=== PATIENT | female | born 1955 | race Caucasian/White ===

== ENCOUNTER → 2016-12-19 | Outpatient (CLI) | payer OTHER ==
[~2016-12-19] MED LIST: FEOSOL BIFERA 228 MG PO; GLUCOSAMINE-CH1 EAC3 PO; HYDROCODON-ACE1 EAC7 PO; HYDROXYZINE HCL50 MG PO; KLONOPIN0.5 M3 PO; LEVOTHYROXINE100 MC1 PO; NABUMETONE500 MG PO; VITAMIN B-121000 MCG PO; VITAMIN D31000 UNIT PO; VYTORIN 10-401 EACH PO
--- NOTE | ~2016-12-19 | US37 ---
[facility] A Service of [facility] & [facility] RADIOLOGY TEXT RESULTS PATIENT: CRAIG RODRÍGUEZ LOCATION: [facility] : 55 UNIT #: [id number] AGE: [address]: CHIRAG MCKEON MD (INT MED) SEX: F ORDER DR: [id number] [facility] [address] [place], [place] [address] [id number] O MR#: [id number] Acc #: [id number] NAME: CRAIG RODRÍGUEZ : 1955 SEX: F STUDY DATE/TIME: 12/19/2016 14:07 UNIT: [facility] ROOM: STUDY DESCRIPTION: US Carotid W/Doppler Bilateral Attending Physician: Chirag Mckeon M.D. Referring Physician: Chirag Mckeon M.D. Ordering Physician: Chirag Mckeon M.D. Primary Care Physician: Chirag Mckeon M.D. MEDICAL IMAGING REPORT This report is preliminary unless electronic signature is present EXAM Bilateral carotid duplex HISTORY Carotid bruit. FINDINGS Duplex imaging of the carotid arteries was performed. The right common carotid artery is patent. Plaque is seen at the right internal and external carotid artery origins. Velocity in the right common femoral is 77, internal is 73 proximally, 93 mid portion, and 145 distally. External is 145 cm/sec. Right ICA/CCA ratio is 1.89. On the left side, the common carotid artery is patent. Mild plaque is seen in the left internal carotid artery. Velocity in the left common carotid is 101, internal is 92, and external is 175 cm/sec. Left ICA/CCA ratio is 1.02. Antegrade flow is seen in the right vertebral artery and retrograde flow is seen in the left vertebral artery. IMPRESSION 1. Plaque with less than 50% stenosis is seen in the internal carotid arteries bilaterally. 2. Antegrade flow is seen in the right vertebral artery. 3. Retrograde flow is seen in the left vertebral artery. Clinical correlation is recommended for subclavian steal syndrome. Dictated by... Arley Salvador M.D. [facility] A Service of [facility] & [facility] RADIOLOGY TEXT RESULTS PATIENT: CRAIG RODRÍGUEZ LOCATION: [facility] : 55 UNIT #: [id number] AGE: [address]: CHIRAG MCKEON MD (INT MED) SEX: F ORDER DR: THIS IS AN ELECTRONICALLY VERIFIED REPORT Arley Salvador M.D. at 12/20/2016 9:09 AM Ramirez TD: 12/20/2016 06:40 JOB #: [id number] MEDICAL IMAGING REPORT COPY
--- NOTE | ~2016-12-19 | MY11 ---
[facility] A Service of [facility] & [facility] RADIOLOGY TEXT RESULTS PATIENT: CRAIG RODRÍGUEZ LOCATION: [facility] : 55 UNIT #: [id number] AGE: [address]: CHIRAG MCKEON MD (INT MED) SEX: F ORDER DR: [id number] [facility] [address] [place], [place] [address] [id number] O MR#: [id number] Acc #: [id number] NAME: CRAIG RODRÍGUEZ : 1955 SEX: F STUDY DATE/TIME: 12/19/2016 13:00 UNIT: [facility] ROOM: STUDY DESCRIPTION: MY Mammogram Screening Dig Miguel Attending Physician: Chirag Mckeon M.D. Referring Physician: Chirag Mckeon M.D. Ordering Physician: Chirag Mckeon M.D. Primary Care Physician: Chirag Mckeon M.D. MEDICAL IMAGING REPORT This report is preliminary unless electronic signature is present EXAM Bilateral digital screening mammogram with CAD, 12/19/2016 INDICATION Routine screening. No current complaints. No history of breast cancer. No old studies. FINDINGS MLO and CC views of each breast were obtained. The exam was reviewed with an FDA-approved CAD device. There is a grouping of calcifications associated with soft tissue in the posterior lateral left breast. The area is about a centimeter maximal dimension. The right breast has a small nodule measuring 9 mm in diameter in the lateral breast. It was only seen on the CC view but is probably in the upper half of the breast on the MLO view. IMPRESSION There are no old studies available. There is a grouping of indeterminate calcifications in the upper outer breast posteriorly that need additional evaluation with magnification views and there is a small 9 mm nodule in the right breast upper outer quadrant posterior third that should be evaluated with spot compression imaging and ultrasound. The left breast lesion should also be evaluated with ultrasound. Patients over the age of 40 are entered into a reminder system with target due date for the next mammogram. A result letter will also be sent to the patient. BIRADS: 0 Incomplete; need additional imaging evaluation and/or prior mammograms for comparison. [facility] A Service of [facility] & [facility] RADIOLOGY TEXT RESULTS PATIENT: CRAIG RODRÍGUEZ LOCATION: [facility] : 55 UNIT #: [id number] AGE: [address]: CHIRAG MCKEON MD (INT MED) SEX: F ORDER DR: Dictated by... Heriberto Rousseau M.D. THIS IS AN ELECTRONICALLY VERIFIED REPORT Heriberto Rousseau M.D. at 12/20/2016 7:13 AM BROOKE/peter TD: 12/20/2016 04:25 JOB #: [id number] MEDICAL IMAGING REPORT COPY
== END | disposition home or self-care (01) ==
LOC: CWCC 12:23
DX: Z12.31 Encounter for screening mammogram for malignant neoplasm of breast (principal); N63 Unspecified lump in breast; I08.1 Rheumatic disorders of both mitral and tricuspid valves; I65.23 Occlusion and stenosis of bilateral carotid arteries
CPT/HCPCS: 93306; 93880; G0202

== ENCOUNTER → 2016-12-30 | Outpatient (CLI) | payer OTHER ==
--- NOTE | ~2016-12-30 | MY6 ---
[facility] A Service of [facility] & [facility] RADIOLOGY TEXT RESULTS PATIENT: CRAIG RODRÍGUEZ LOCATION: [facility] : 55 UNIT #: [id number] AGE: [address]: CHIRAG MCKEON MD (INT MED) SEX: F ORDER DR: [id number] [facility] [address] [place], [place] [address] [id number] O MR#: [id number] Acc #: [id number] NAME: CRAIG RODRÍGUEZ : 1955 SEX: F STUDY DATE/TIME: 12/30/2016 14:48 UNIT: [facility] ROOM: STUDY DESCRIPTION: MY Mammogram Dx Dig Miguel Attending Physician: Chirag Mckeon M.D. Referring Physician: Chirag Mckeon M.D. Ordering Physician: Chirag Mckeon M.D. Primary Care Physician: Chirag Mckeon M.D. MEDICAL IMAGING REPORT This report is preliminary unless electronic signature is present EXAM 1. Bilateral digital diagnostic mammogram with CAD. 2. Targeted bilateral breast ultrasound. DATE 12/30/2016. HISTORY 61-year-old female recalled for a nodule in the right breast and microcalcifications in the left breast on recent screening baseline mammogram. No current problems. TECHNIQUE Compression CC and compression MLO views of the right breast were performed. Compression magnification CC, compression magnification MLO views of the left breast were performed. Standard true lateral views of both breasts were also performed. COMPARISON STUDIES 12/19/2016 FINDINGS MAMMOGRAPHIC FINDINGS: Right breast - The small nodule in the lateral hemisphere, right breast, posteriorly, measuring 9 mm, persists on spot CC view. It localizes superiorly on the MLO image and true lateral view, but is obscured from complete visualization by overlapping dense breast tissue. Based on the mammogram, it could represent a tiny intramammary node or cyst. Ultrasound was, thereafter, performed. Left breast - The microcalcifications in the posterior upper outer quadrant, left breast, are indeterminate on the additional spot magnification views. They are associated with a nodular soft tissue STS. [facility] A Service of [facility] & [facility] RADIOLOGY TEXT RESULTS PATIENT: CRAIG RODRÍGUEZ LOCATION: [facility] #: [id number] : 55 UNIT #: [id number] AGE: [address]: CHIRAG MCKEON MD (INT MED) SEX: F ORDER DR: density measuring up to about 10 mm. They are associated with the posterior margin of a scar marker in the upper outer quadrant, left breast, from prior surgery. Ultrasound of this area was thereafter performed, as well. ULTRASOUND FINDINGS: The patient was initially scanned independently by the technologist and then rescanned in my presence. Right breast - Imaging of the upper outer quadrant, right breast, was performed. Imaging was performed from the 9 o'clock through the 11 o'clock positions. Ultrasound is negative, demonstrating no cystic or solid nodule or persistent shadowing abnormality. There is no correlate for the mammographic finding. Given imaging features mammographically, it will require a follow-up diagnostic mammogram in 6 months to reassess stability. Lack of a sonographic finding is suggestive of a probably benign etiology. Left breast - Imaging of the upper outer quadrant, left breast, was performed with attention to the 2 and 3 o'clock positions. Ultrasound demonstrates a subtle iso- to slightly hypoechoic solid nodule measuring approximately 8 x 10 x 5 mm. Centrally, within the nodule, there are small flecks of calcium most characteristic of microcalcifications. Imaging features are felt to correspond to the mammographic abnormality. There is no internal color flow or significant posterior acoustical shadowing. The margins are somewhat irregular and microlobulated, however, and imaging findings are concordant with mammography and indeterminate. This could potentially represent an area of fat necrosis from prior surgery. Malignancy, however, could present similarly, and ultrasound-guided core biopsy is recommended for further assessment. At the time of core biopsy, a clip should be placed and the clip placement should be correlated with a clip placement mammogram to ensure that the abnormality identified on ultrasound corresponds to the mammographic finding. Findings regarding the need for 6-month follow-up imaging of the right breast to document stability of the probably benign 9-mm nodule were discussed with the patient. Findings regarding the recommendation for ultrasound-guided core biopsy of the indeterminate nodule with microcalcifications in the upper outer left breast was also discussed with the patient. The patient has voiced understanding and agreement with both recommendations. She has requested that the biopsy on the left be scheduled in the afternoon, if possible, to accommodate her work schedule. I have also personally contacted the breast primary care sales representative for mammography regarding the recommendations for biopsy on the left, and they were in the process of notifying the ordering office of Dr. Chirag Mckeon of these recommendations. IMPRESSION 1. Indeterminate microcalcifications with an associated soft tissue nodule in the upper outer left breast. This may represent fat STS. [facility] A Service of [facility] RADIOLOGY TEXT RESULTS PATIENT: CRAIG RODRÍGUEZ LOCATION: [facility] : 55 UNIT #: [id number] AGE: [address]: CHIRAG MCKEON MD (INT MED) SEX: F ORDER DR: necrosis, but is indeterminate and malignancy could present similarly on imaging. Ultrasound-guided core biopsy recommended for further assessment, as described above. The patient and the breast primary care sales representative are both aware of the recommendation for biopsy. The patient has requested scheduling of the biopsy in the afternoon, if possible, to accommodate her work schedule. 2. There is a nodule in the upper outer right breast measuring 9 mm. It is not identified with ultrasound, and there are no suspicious findings on ultrasound in the same quadrant of the right breast. This represents a probably benign finding on mammography, perhaps an intramammary node. 6-month follow-up imaging with a repeat diagnostic mammogram on the right recommended to document stability. 3. All of these findings and recommendations have been discussed with the patient. She has voiced understanding and agreement. Patients over the age of 40 are entered into a reminder system with target due date for the next mammogram. A result letter will also be sent to the patient. BIRADS: 4 Suspicious abnormality; biopsy should be considered. Dictated by... Julian Miranda M.D. THIS IS AN ELECTRONICALLY VERIFIED REPORT Julian Miranda M.D. at 12/30/2016 5:25 PM Lenard TD: 12/30/2016 16:29 JOB #: [id number] MEDICAL IMAGING REPORT COPY
--- NOTE | ~2016-12-30 | US17 ---
[facility] A Service of [facility] & [facility] RADIOLOGY TEXT RESULTS PATIENT: CRAIG RODRÍGUEZ LOCATION: [facility] : 55 UNIT #: [id number] AGE: [address]: CHIRAG MCKEON MD (INT MED) SEX: F ORDER DR: [id number] [facility] [address] [place], [place] [address] [id number] O MR#: [id number] Acc #: [id number] NAME: CRAIG RODRÍGUEZ : 1955 SEX: F STUDY DATE/TIME: 12/30/2016 15:29 UNIT: [facility] ROOM: STUDY DESCRIPTION: US Breast Bilateral Attending Physician: Chirag Mckeon M.D. Referring Physician: Chirag Mckeon M.D. Ordering Physician: Chirag Mckeon M.D. Primary Care Physician: Chirag Mckeon M.D. MEDICAL IMAGING REPORT This report is preliminary unless electronic signature is present EXAM Targeted bilateral breast ultrasound, 12/30/2016. FINDINGS Please see the bilateral diagnostic mammogram same date. Patients over the age of 40 are entered into a reminder system with target due date for the next mammogram. A result letter will also be sent to the patient. BIRADS: 4 Suspicious abnormality; biopsy should be considered. STAT * RESULT Dictated by... Julian Miranda M.D. THIS IS AN ELECTRONICALLY VERIFIED REPORT Julian Miranda M.D. at 12/30/2016 5:20 PM OLIVA/nazanin TD: 12/30/2016 16:30 JOB #: [id number] MEDICAL IMAGING REPORT COPY
== END | disposition home or self-care (01) ==
LOC: CMAM 14:08
DX: N63 Unspecified lump in breast (principal); R92.1 Mammographic calcification found on diagnostic imaging of breast; R92.0 Mammographic microcalcification found on diagnostic imaging of breast
CPT/HCPCS: 76641; G0204

== ENCOUNTER → 2017-01-06 | Day surgery (SDC) | payer OTHER ==
--- NOTE | ~2017-01-06 | US200 ---
[facility] A Service of [facility] RADIOLOGY TEXT RESULTS PATIENT: CRAIG RODRÍGUEZ LOCATION: [facility] : 55 UNIT #: [id number] AGE: [address]: CHIRAG MCKEON MD (INT MED) SEX: F ORDER DR: [id number] [place] [address] [place], [place] [address] [id number] O MR#: [id number] Acc #: [id number] NAME: CRAIG RODRÍGUEZ : 1955 SEX: F STUDY DATE/TIME: 01/06/2017 13:48 UNIT: [facility] ROOM: STUDY DESCRIPTION: US Breast Guided Bx 1st Lesion Attending Physician: Chirag Mckeon M.D. Ordering Physician: Chirag Mckeon Primary Care Physician: Chirag Mckeon M.D. MEDICAL IMAGING REPORT This report is preliminary unless electronic signature is present REVISED REPORT SEE ADDENDUM EXAM Ultrasound-guided left breast core biopsy. HISTORY Left breast mass. TECHNIQUE Following discussion of the procedure, including potential risks and benefits, informed consent was obtained. The patient's questions were answered. The patient was brought to the ultrasound suite, and a ghad-vp-sjoct time-out was performed. The area of concern in the left breast, 2 o'clock position, was identified. Skin was prepped and draped using full sterile technique. The skin and overlying soft tissues were anesthetized with lidocaine. Then, under ultrasound guidance, 2 core samples were obtained, using an automated core biopsy device. Images were stored. Then, a marker clip was placed under ultrasound guidance, and the image was stored. No immediate complication. Post biopsy mammogram shows the clip in the region of the mammographic area of concern. IMPRESSION Left breast ultrasound-guided core biopsy. No immediate complications. Dictated by... Pardeep Conroy M.D. [facility] A Service of [facility] & [facility] RADIOLOGY TEXT RESULTS PATIENT: CRAIG RODRÍGUEZ LOCATION: [facility] : 55 UNIT #: [id number] AGE: [address]: CHIRAG MCKEON MD (INT MED) SEX: F ORDER DR: THIS IS AN ELECTRONICALLY VERIFIED REPORT Pardeep Conroy M.D. at 01/09/2017 7:40 AM Crissy TD: 01/06/2017 19:11 JOB #: [id number] ADDENDUM Ultrasound-guided breast biopsy DATE OF SERVICE 01/06/2017 Pathology is made available and is significant for focal ductal carcinoma in situ. Findings are concordant with the sonographic features. Dictated by... Pardeep Conroy M.D. THIS IS AN ELECTRONICALLY VERIFIED REPORT Pardeep Conroy M.D. at 01/26/2017 6:51 AM Deb TD: 01/25/2017 14:24 JOB #: [id number] MEDICAL IMAGING REPORT Page 1 of 1 COPY
--- NOTE | ~2017-01-06 | MY14 ---
[facility] A Service of [facility] & [facility] RADIOLOGY TEXT RESULTS PATIENT: CRAIG RODRÍGUEZ LOCATION: [facility] : 55 UNIT #: [id number] AGE: [address]: CHIRAG MCKEON MD (INT MED) SEX: F ORDER DR: [id number] [facility] [address] [place], [place] [address] [id number] O MR#: [id number] Acc #: [id number] NAME: CRAIG RODRÍGUEZ : 1955 SEX: F STUDY DATE/TIME: 01/06/2017 13:54 UNIT: [facility] ROOM: STUDY DESCRIPTION: MY Post Bx Film Attending Physician: Chirag Mckeon M.D. Ordering Physician: Chirag Mckeon M.D. Primary Care Physician: Chirag Mckeon M.D. MEDICAL IMAGING REPORT This report is preliminary unless electronic signature is present EXAM Post biopsy mammogram. FINDINGS Refer to the separately dictated ultrasound-guided biopsy for procedural details. Dictated by... Pardeep Conroy M.D. THIS IS AN ELECTRONICALLY VERIFIED REPORT Pardeep Conroy M.D. at 01/09/2017 7:40 AM Crissy TD: 01/06/2017 19:15 JOB #: [id number] MEDICAL IMAGING REPORT Page 1 of 1 COPY
== END | disposition home or self-care (01) ==
LOC: CWCC 13:31
DX: D05.12 Intraductal carcinoma in situ of left breast (principal); Z17.0 Estrogen receptor positive status [ER+]
CPT/HCPCS: 88305; G0204

== ENCOUNTER → 2017-03-09 | Outpatient (CLI) | payer OTHER ==
--- NOTE | ~2017-03-09 | EKG ---
PATIENT: CRAIG RODRÍGUEZ UNIT #: [id number] Ventricular Rate: 79 BPM Atrial Rate: 79 BPM P-R Interval: 182 ms QRS Duration: 78 ms Q-T Interval: 400 ms QTC Calculation(Bezet): 458 ms P Bethesda: 49 degrees Calculated R Bet[place]da: 7 degrees Calculated T Bet[place]da: 43 degrees Diagnosis Line: Normal sinus rhythm Diagnosis Line: Normal ECG Diagnosis Line: No previous ECGs available Diagnosis Line: Confirmed by NOAM GAFFNEY MD ([id number]) on 03/09/2017 Diagnosis Line: 6:10:41 PM INTERPRETING MD: GULSHAN GARRISON
[2017-03-09 15:24] LABS: HEMATOCRIT 41.5 % (35.0-45.0); HEMOGLOBIN 13.6 gm/dL (12.0-16.0); MEAN CELL VOLUME 85.3 FL (83-96); MEAN CORPUSCULAR HGB CONC 32.9 g/dL (30-36); RED BLOOD COUNT 4.87 X10e (3.90-5.30); RED CELL DISTRIBUTION WIDTH 14.3 % (11.0-15.5); WHITE BLOOD COUNT 9.7 X10e3 (4.0-10.5)
[2017-03-09 15:45] LABS: BUN/CREATININE RATIO 13.75; CALCIUM SERUM 8.7 mg/dL (8.4-10.2); CREATININE SERUM 0.8 mg/dL (0.6-1.4); GLOM FILT RATE Estimated 79.6 mL/min (>60); POTASSIUM 4.3 mmol/L (3.5-5.1)
== END | disposition home or self-care (01) ==
LOC: CAMB 13:57
PROVIDERS: Surgery
DX: Z01.818 Encounter for other preprocedural examination (principal); D05.12 Intraductal carcinoma in situ of left breast; R92.0 Mammographic microcalcification found on diagnostic imaging of breast; R92.8 Other abnormal and inconclusive findings on diagnostic imaging of breast; J01.90 Acute sinusitis, unspecified; J30.9 Allergic rhinitis, unspecified; D64.9 Anemia, unspecified; M19.90 Unspecified osteoarthritis, unspecified site; D22.9 Melanocytic nevi, unspecified; R09.89 Other specified symptoms and signs involving the circulatory and respiratory systems; F32.9 Major depressive disorder, single episode, unspecified
CPT/HCPCS: 36415; 80048; 85027; 93005

== ENCOUNTER → 2017-03-16 | Outpatient (CLI) | payer OTHER ==
--- NOTE | ~2017-03-16 | OR ---
Unit #: [id number] #: [id number] Patient: CRAIG RODRÍGUEZ 347[address] [address] [id number] O MR#: [id number] NAME: CRAIG RODRÍGUEZ ROOM: Date of Procedure: 03/16/2017 Admission Date: 03/16/2017 Surgeon: Doyle Ureña M.D. : 1955 Attending Physician: Doyle Ureña M.D. Referring Physician: Doyle Ureña M.D. Primary Care Physician: Doyle Ureña M.D. OPERATIVE REPORT PREOPERATIVE DIAGNOSIS Ductal carcinoma in situ, left breast, upper central aspect. POSTOPERATIVE DIAGNOSIS Ductal carcinoma in situ, left breast, upper central aspect. PROCEDURE PERFORMED Needle localization lumpectomy, left breast upper central aspect. ANESTHESIA General LMA anesthesia with 0.5% Marcaine plain local anesthesia. FINDINGS The lesion, clip and wire were all found within the specimen on specimen radiograph. SPECIMENS Sent to pathology. COMPLICATIONS None apparent. CONDITION The patient tolerated the procedure well. INDICATIONS FOR PROCEDURE The patient is a 61-year-old female, who was found on recent mammography to have calcifications in the upper portion of her left breast in the central aspect. She was also found to have a small solid lesion in the right breast, which on biopsy returned as a fibroadenoma. Two other areas were found on breast MRI had MRI-guided biopsy performed in the medial aspect of the left breast and both returned as benign parenchyma. The patient presented at this time for needle localization lumpectomy for the area of DCIS. DESCRIPTION OF PROCEDURE After obtaining informed consent as well as receiving preoperative antibiotics, the patient was brought to the operating room. Earlier in the day, she had undergone image guided needle localization. After adequate general LMA anesthesia was obtained and after receiving antibiotics and knee-high SCDs, the patient's left breast was prepped and draped in a sterile fashion. A curvilinear incision was made in the upper Unit #: [id number] #: [id number] Patient: CRAIG RODRÍGUEZ outer portion of the left breast. It was taken down through the skin with a knife through the subcutaneous tissues to the level of the wire without difficulty with electrocautery. The area around the hook of the wire was grasped with an Allis clamp and it was circumferentially excised. There was good hemostasis. The specimen was sent for specimen radiograph and the lesion, clip, and wire were all found within the specimen on x-ray. The wound was irrigated. Hemostasis was obtained with the Bovie, infiltrated with 0.5% Marcaine plain local anesthesia. The subcutaneous tissues were reapproximated with interrupted 3-0 Vicryl suture. The skin was closed with 4-0 Vicryl subcuticular stitch. Benzoin and Steri-Strips were applied over the wound in an occlusive manner followed by dry dressing and a Tegaderm dressing. Needle counts, sponge counts, and instrument counts were all correct as reported by the scrub nurse x2. The patient went from the operating room to the recovery room in stable condition. Dictated by... Marsha Griffin/dora TD: 03/17/2017 00:52 JOB #: [id number] CC: Marsha Ayoub M.D. [facility] OPERATIVE REPORT Page 1 of 1 X Doyle Ureña MD X PROCEDURE OPERATIVE NOTE
--- NOTE | ~2017-03-16 | MY20 ---
[facility] A Service of [facility] & [facility] RADIOLOGY TEXT RESULTS PATIENT: CRAIG RODRÍGUEZ LOCATION: [facility] : 55 UNIT #: [id number] AGE: [address]: Doyle Ureña MD SEX: F ORDER DR: [id number] [facility] [address] [place], [place] [address] [id number] O MR#: [id number] Acc #: [id number] NAME: CRAIG RODRÍGUEZ : 1955 SEX: F STUDY DATE/TIME: 03/16/2017 9:16 UNIT: [facility] ROOM: STUDY DESCRIPTION: MY Breast Ndl Loc 1st Attending Physician: Doyle Ureña M.D. Referring Physician: Doyle Ureña M.D. Ordering Physician: Doyle Ureña M.D. Primary Care Physician: Doyle Ureña M.D. MEDICAL IMAGING REPORT This report is preliminary unless electronic signature is present EXAM Mammographic needle localization left breast 03/16/2017 INDICATION Patient presents for needle localization and surgical excision of biopsy proven DCIS in the upper outer left breast. PROCEDURE Informed consent was obtained and time-out was performed. Patient's prior imaging was reviewed. Initial attempts at localizing the lesion at the upper outer left breast with ultrasound were not definitive. Therefore, the patient was moved to the mammography suite. She was subsequently placed in lateral to medial compression. The skin was cleansed with a ChloraPrep. 1% Lidocaine without epinephrine used for local anesthesia. A [place] wire and needle were used to localize the mass from a lateral approach. Needle and wire placement are confirmed with orthogonal mammographic views. The tip of the [place] needle is immediately adjacent to the mass and marking clip. The hook of the wire extends slightly posterior and superior to the lesion. These findings have been communicated to Dr. Ureña. No immediate complications. IMPRESSION Successful mammographic needle localization of biopsy proven DCIS in the left upper outer breast. The tip of a [place] needle is immediately adjacent to the mass and marking clip and the hook of the wire extends slightly posterior and superior to the lesion. Dictated by... Jose Saini Jr., M.D. [facility]. [facility] A Service of [facility] & [facility] RADIOLOGY TEXT RESULTS PATIENT: CRAIG RODRÍGUEZ LOCATION: [facility] #: [id number] : 55 UNIT #: [id number] AGE: [address]: Doyle Ureña MD SEX: F ORDER DR: THIS IS AN ELECTRONICALLY VERIFIED REPORT Jose Saini Jr., M.D. at 03/17/2017 6:08 AM ROSELINE/missy TD: 03/16/2017 13:00 JOB #: [id number] MEDICAL IMAGING REPORT Page 1 of 1 COPY
--- NOTE | ~2017-03-16 | MY13 ---
[facility] A Service of [facility] & [facility] RADIOLOGY TEXT RESULTS PATIENT: CRAIG RODRÍGUEZ LOCATION: [facility] : 55 UNIT #: [id number] AGE: [address]: Doyle Ureña MD SEX: F ORDER DR: [id number] [facility] [address] [place], [place] [address] [id number] O MR#: [id number] Acc #: [id number] NAME: CRAIG RODRÍGUEZ : 1955 SEX: F STUDY DATE/TIME: 03/16/2017 11:34 UNIT: [facility] ROOM: STUDY DESCRIPTION: MY Surgical Specimen Attending Physician: Doyle Ureña M.D. Referring Physician: Doyle Ureña M.D. Ordering Physician: Doyle Ureña M.D. Primary Care Physician: Doyle Ureña M.D. MEDICAL IMAGING REPORT This report is preliminary unless electronic signature is present EXAM Surgical specimen, 03/16. HISTORY Biopsy proven DCIS status post lumpectomy today. FINDINGS Specimen radiograph was obtained. It shows the previously placed biopsy marking clip. It shows the mass with associated microcalcifications. It also shows the Cascade wire. Findings were called directly to Dr. Ureña in the operating room before this dictation. IMPRESSION Specimen radiograph shows the DCIS, marking clip, and Cascade wire. Dictated by... Jose Saini Jr., M.D. THIS IS AN ELECTRONICALLY VERIFIED REPORT Jose Saini Jr., M.D. at 03/17/2017 6:09 AM ROSELINE/nazanin TD: 03/16/2017 14:14 JOB #: [id number] MEDICAL IMAGING REPORT Page 1 of 1 COPY
== END | disposition home or self-care (01) ==
LOC: CWCC 07:16
DX: D05.12 Intraductal carcinoma in situ of left breast (principal); Z17.0 Estrogen receptor positive status [ER+]
CPT/HCPCS: 76098; 88307; J0690; J1885; J2250; J2405; J3010